=== PATIENT | male | born 1945 | race Caucasian/White ===

== ENCOUNTER 2017-04-10 10:51 | Day surgery (SDC) | payer OTHER, MEDICARE ==
[~2017-04-10] VITALS: Ht 177.8 cm; Wt 98.5 kg
[~2017-04-10 10:51] MED LIST: AMLO10 PO; ASPI81CH PO; ATOR40TA PO; CVS GLUCOSAMIN1 EAC5 PO; FURO40 PO; GLIP5 PO; Isosorbide Mono60 MG PO; METO50 PO; Omeprazole20 M1 PO; POTA10T PO; PRAM.5 PO; SPIR25 PO
[2017-08-29] MEDS ORDERED: FURO20 (09:40)
== END 2017-04-10 14:35 | disposition home or self-care (01) ==
LOC: ORSCSDS 10:51
PROVIDERS: Internal Medicine Gastroenterology
PROC: 0D758ZZ Dilation of Esophagus, Via Natural or Artificial Opening Endoscopic (ICD-10-PCS; principal; 2017-04-10 12:15)
PROC: 0DB68ZX Excision of Stomach, Via Natural or Artificial Opening Endoscopic, Diagnostic (ICD-10-PCS; principal; 2017-04-10 12:15)
PROC: 0DB58ZX Excision of Esophagus, Via Natural or Artificial Opening Endoscopic, Diagnostic (ICD-10-PCS; principal; 2017-04-10 12:15)
DX: R13.10 Dysphagia, unspecified (principal); B37.81 Candidal esophagitis; K29.50 Unspecified chronic gastritis without bleeding; B96.81 Helicobacter pylori [H. pylori] as the cause of diseases classified elsewhere; I25.10 Atherosclerotic heart disease of native coronary artery without angina pectoris; I25.2 Old myocardial infarction; I50.9 Heart failure, unspecified; I10 Essential (primary) hypertension; G25.81 Restless legs syndrome; E11.9 Type 2 diabetes mellitus without complications; E78.5 Hyperlipidemia, unspecified; Z87.891 Personal history of nicotine dependence; Z79.82 Long term (current) use of aspirin; Z79.84 Long term (current) use of oral hypoglycemic drugs; Z79.899 Other long term (current) drug therapy
CPT/HCPCS: 82947; 88305; 88312; 88342; J2250; J7120

== ENCOUNTER 2017-07-08 05:46 | Observation (INO) | payer OTHER, MEDICARE ==
[~2017-07-08] VITALS: Ht 175.3 cm; Wt 99.3 kg
[~2017-07-08 05:46] MED LIST changes: +ISOMON20 PO; -Isosorbide Mono60 MG PO
[2017-07-08 09:48] LABS: Percent Saturation 15.7 % (20.0-50.0)
[2017-07-08 10:01] LABS: Thyroxine (T4) 10.3 ug/dL (4.5-12.1); Troponin I 0.126 ng/mL (0.000-0.040)
[2017-07-08 10:03] LABS: Thyroid Stimulating Hormone 3.11 uIU/mL (0.360-4.800); Triiodothyronine, Free 2.1 pg/mL (2.18-3.98)
[2017-07-08] MEDS ORDERED: TORSE20 PO (10:46)
[2017-07-09 05:39] LABS: BASOPHILS ABSOLUTE AUTO 0.03 K/mm3 (0.00-0.23); BASOPHILS PERCENT AUTO 0 % (0-2); EOSINOPHILS ABSOLUTE AUTO 0.24 K/mm3 (0.00-0.68); EOSINOPHILS PERCENT AUTO 3 % (0-6); Hematocrit 38.2 % (37.0-53.0); Hemoglobin 12.6 g/dL (13.5-17.5); IMMATURE GRAN ABSOLUTE AUTO 0.02 K/mm3 (0.00-0.10); IMMATURE GRAN PERCENT AUTO 0 % (0-1); LYMPHOCYTES ABSOLUTE AUTO 2.15 K/mm3 (0.84-5.20); LYMPHOCYTES PERCENT AUTO 25 % (21-46); MONOCYTES ABSOLUTE AUTO 0.81 K/mm3 (0.16-1.47); MONOCYTES PERCENT AUTO 9 % (4-13); Mean Corpuscular HGB 27.1 pg (26.0-34.0); Mean Corpuscular Volume 82 fL (80-100); NEUTROPHILS ABSOLUTE AUTO 5.41 K/mm3 (1.96-9.15); NEUTROPHILS PERCENT AUTO 63 % (41-73); Platelet Count 191 K/mm3 (150-400); RDW Coefficient Variation 13.3 % (11.7-14.2); RDW Standard Deviation 39.3 fL (35.1-46.3); Red Blood Cell Count 4.65 M/mm3 (4.30-5.90); White Blood Cell Count 8.66 K/mm3 (4.00-11.30)
[2017-07-09 06:04] LABS: Calcium, Blood 8.1 mg/dL (8.5-10.1); Creatinine, Blood 1.4 mg/dL (0.60-1.20); Potassium, Blood 3.3 mmol/L (3.5-5.5)
[2017-07-10] MEDS ORDERED: SPIR50 PO (09:43)
[2017-07-10] MEDS ORDERED: LOSA50 PO (09:43)
== END 2017-07-10 10:23 | disposition home or self-care (01) ==
LOC: ER 05:46 → MEDS 05:47 → ICUW 05:47 → ICUE 09:47 → MEDS 15:36 → ENPENDDIS 07-10 09:00 → MEDS 07-10 10:23
PROVIDERS: Internal Medicine
DX: I21.A1 Myocardial infarction type 2 (principal); I20.8 Other forms of angina pectoris; I13.0 Hypertensive heart and chronic kidney disease with heart failure and stage 1 through stage 4 chronic kidney disease, or unspecified chronic kidney disease; I50.22 Chronic systolic (congestive) heart failure; E11.22 Type 2 diabetes mellitus with diabetic chronic kidney disease; N18.3 Chronic kidney disease, stage 3 (moderate); I25.2 Old myocardial infarction; D50.9 Iron deficiency anemia, unspecified; G25.81 Restless legs syndrome; K21.9 Gastro-esophageal reflux disease without esophagitis; E11.649 Type 2 diabetes mellitus with hypoglycemia without coma; Z88.8 Allergy status to other drugs, medicaments and biological substances; Z95.5 Presence of coronary angioplasty implant and graft; Z95.1 Presence of aortocoronary bypass graft; Z87.891 Personal history of nicotine dependence; Z82.49 Family history of ischemic heart disease and other diseases of the circulatory system; Z79.899 Other long term (current) drug therapy
CPT/HCPCS: 36415; 78452; 80048; 82728; 82947; 83540; 83550; 84436; 84443; 84481; 84484; 85025; 93005; 93010; 93017; 93306; 96360; 96361; 99285; A9500; G0378; J0280; J2785; J7030

== ENCOUNTER 2017-11-30 08:03 | Inpatient (IN) | payer OTHER, MEDICARE ==
[~2017-11-30] VITALS: Ht 177.8 cm; Wt 98.4 kg
[~2017-11-30 08:03] MED LIST changes: +FURO20; -ISOMON20 PO; +Isosorbide Mono60 MG PO; +LOSA50 PO; +SPIR50 PO; +TORSE20 PO
[2017-11-30] MEDS ORDERED: Prilosec Otc20 MG (08:11)
[2017-11-30] MEDS ORDERED: POTCHL20ER PO (08:11)
[2017-11-30] MEDS ORDERED: ALBU2.5V5 INH (08:11)
[2017-11-30] MEDS ORDERED: FERSU90EL (08:11)
[2017-11-30 08:50] LABS: BASOPHILS ABSOLUTE AUTO 0.01 K/mm3 (0.00-0.23); BASOPHILS PERCENT AUTO 0 % (0-2); EOSINOPHILS ABSOLUTE AUTO 0.07 K/mm3 (0.00-0.68); EOSINOPHILS PERCENT AUTO 1 % (0-6); Hematocrit 31.3 % (37.0-53.0); Hemoglobin 9.4 g/dL (13.5-17.5); IMMATURE GRAN ABSOLUTE AUTO 0.04 K/mm3 (0.00-0.10); IMMATURE GRAN PERCENT AUTO 0 % (0-1); LYMPHOCYTES ABSOLUTE AUTO 1.24 K/mm3 (0.84-5.20); LYMPHOCYTES PERCENT AUTO 12 % (21-46); MONOCYTES ABSOLUTE AUTO 0.94 K/mm3 (0.16-1.47); MONOCYTES PERCENT AUTO 9 % (4-13); Mean Corpuscular Volume 77 fL (80-100); Mean Platelet Volume 9.6 fL (9.1-12.4); NEUTROPHILS ABSOLUTE AUTO 8.13 K/mm3 (1.96-9.15); NEUTROPHILS PERCENT AUTO 78 % (41-73); Platelet Count 203 K/mm3 (150-400); RDW Coefficient Variation 15.3 % (11.7-14.2); RDW Standard Deviation 42.4 fL (35.1-46.3); Red Blood Cell Count 4.08 M/mm3 (4.30-5.90); White Blood Cell Count 10.43 K/mm3 (4.00-11.30)
[2017-11-30 09:03] LABS: International Normalized Ratio 1.09; Prothrombin Time Results 11.2 Sec (9.7-11.5)
[2017-11-30 09:12] LABS: Albumin, Blood 2.7 g/dL (3.4-5.0); Albumin/Globulin Ratio 0.9 (0.8-1.8); Bilirubin, Total 0.6 mg/dL (0.1-1.0); Bun/Creatinine Ratio 10.5 (12.0-20.0); Calcium, Blood 7.3 mg/dL (8.5-10.1); Creatinine, Blood 1.43 mg/dL (0.60-1.20); Globulin, Blood 2.9 g/dL (2.2-4.0); Potassium, Blood 2.6 mmol/L (3.5-5.5); Total Protein, Blood 5.6 g/dL (6.4-8.2)
[2017-11-30 09:24] LABS: Troponin I 0.896 ng/mL (0.000-0.040)
[2017-12-01 04:38] LABS: Bun/Creatinine Ratio 11.3 (12.0-20.0); Calcium, Blood 7.5 mg/dL (8.5-10.1); Creatinine, Blood 1.42 mg/dL (0.60-1.20); Potassium, Blood 2.7 mmol/L (3.5-5.5)
[2017-12-02 04:21] LABS: BASOPHILS ABSOLUTE AUTO 0.02 K/mm3 (0.00-0.23); BASOPHILS PERCENT AUTO 0 % (0-2); EOSINOPHILS ABSOLUTE AUTO 0.04 K/mm3 (0.00-0.68); EOSINOPHILS PERCENT AUTO 0 % (0-6); Hematocrit 35.6 % (37.0-53.0); Hemoglobin 10.6 g/dL (13.5-17.5); IMMATURE GRAN ABSOLUTE AUTO 0.12 K/mm3 (0.00-0.10); IMMATURE GRAN PERCENT AUTO 1 % (0-1); LYMPHOCYTES ABSOLUTE AUTO 1.78 K/mm3 (0.84-5.20); LYMPHOCYTES PERCENT AUTO 10 % (21-46); MONOCYTES ABSOLUTE AUTO 1.24 K/mm3 (0.16-1.47); MONOCYTES PERCENT AUTO 7 % (4-13); Mean Corpuscular HGB 22.8 pg (26.0-34.0); Mean Corpuscular HGB Conc 29.8 g/dL (31.5-36.5); Mean Corpuscular Volume 77 fL (80-100); Mean Platelet Volume 10.2 fL (9.1-12.4); NEUTROPHILS ABSOLUTE AUTO 13.91 K/mm3 (1.96-9.15); NEUTROPHILS PERCENT AUTO 81 % (41-73); Platelet Count 249 K/mm3 (150-400); RDW Coefficient Variation 15.6 % (11.7-14.2); RDW Standard Deviation 42.7 fL (35.1-46.3); Red Blood Cell Count 4.64 M/mm3 (4.30-5.90); White Blood Cell Count 17.11 K/mm3 (4.00-11.30)
[2017-12-02 04:44] LABS: Albumin, Blood 2.9 g/dL (3.4-5.0); Albumin/Globulin Ratio 0.9 (0.8-1.8); Bilirubin, Total 0.7 mg/dL (0.1-1.0); Calcium, Blood 8.3 mg/dL (8.5-10.1); Creatinine, Blood 1.62 mg/dL (0.60-1.20); Globulin, Blood 3.4 g/dL (2.2-4.0); Magnesium, Blood 1.9 mg/dL (1.6-2.4); Potassium, Blood 3.3 mmol/L (3.5-5.5); Total Protein, Blood 6.3 g/dL (6.4-8.2)
[2017-12-02 04:45] LABS: Troponin I 0.266 ng/mL (0.000-0.040)
[2017-12-03 05:08] LABS: BASOPHILS ABSOLUTE AUTO 0.02 K/mm3 (0.00-0.23); BASOPHILS PERCENT AUTO 0 % (0-2); EOSINOPHILS ABSOLUTE AUTO 0.09 K/mm3 (0.00-0.68); EOSINOPHILS PERCENT AUTO 1 % (0-6); Hematocrit 31.9 % (37.0-53.0); Hemoglobin 9.6 g/dL (13.5-17.5); IMMATURE GRAN ABSOLUTE AUTO 0.06 K/mm3 (0.00-0.10); IMMATURE GRAN PERCENT AUTO 1 % (0-1); LYMPHOCYTES ABSOLUTE AUTO 1.72 K/mm3 (0.84-5.20); LYMPHOCYTES PERCENT AUTO 13 % (21-46); MONOCYTES ABSOLUTE AUTO 1.24 K/mm3 (0.16-1.47); MONOCYTES PERCENT AUTO 9 % (4-13); Mean Corpuscular HGB 22.5 pg (26.0-34.0); Mean Corpuscular HGB Conc 30.1 g/dL (31.5-36.5); Mean Corpuscular Volume 75 fL (80-100); NEUTROPHILS ABSOLUTE AUTO 10.09 K/mm3 (1.96-9.15); NEUTROPHILS PERCENT AUTO 76 % (41-73); Platelet Count 235 K/mm3 (150-400); RDW Coefficient Variation 15.7 % (11.7-14.2); RDW Standard Deviation 42.2 fL (35.1-46.3); Red Blood Cell Count 4.27 M/mm3 (4.30-5.90); White Blood Cell Count 13.22 K/mm3 (4.00-11.30)
[2017-12-03 05:34] LABS: Albumin, Blood 2.7 g/dL (3.4-5.0); Albumin/Globulin Ratio 0.8 (0.8-1.8); Bilirubin, Total 0.9 mg/dL (0.1-1.0); Bun/Creatinine Ratio 12.1 (12.0-20.0); Creatinine, Blood 1.57 mg/dL (0.60-1.20); Globulin, Blood 3.2 g/dL (2.2-4.0); Potassium, Blood 3.5 mmol/L (3.5-5.5); Total Protein, Blood 5.9 g/dL (6.4-8.2)
[2017-12-03] MEDS ORDERED: DILT120 PO (16:04)
[2017-12-03] MEDS ORDERED: FER-IN-SOL15 MG/1 ML PO (16:23)
== END 2017-12-03 16:51 | DRG 309 ==
LOC: ER 08:03 → PCU 08:04
PROVIDERS: Internal Medicine; Nurse Practitioner Acute Care; Physician Assistant
DX: I48.92 Unspecified atrial flutter (principal); I25.110 Atherosclerotic heart disease of native coronary artery with unstable angina pectoris; I13.0 Hypertensive heart and chronic kidney disease with heart failure and stage 1 through stage 4 chronic kidney disease, or unspecified chronic kidney disease; I50.42 Chronic combined systolic (congestive) and diastolic (congestive) heart failure; N18.3 Chronic kidney disease, stage 3 (moderate); E11.22 Type 2 diabetes mellitus with diabetic chronic kidney disease; J44.9 Chronic obstructive pulmonary disease, unspecified; E87.6 Hypokalemia; K21.9 Gastro-esophageal reflux disease without esophagitis; E78.5 Hyperlipidemia, unspecified; G47.33 Obstructive sleep apnea (adult) (pediatric); Z88.8 Allergy status to other drugs, medicaments and biological substances; Z95.1 Presence of aortocoronary bypass graft; Z95.5 Presence of coronary angioplasty implant and graft; Z87.891 Personal history of nicotine dependence; Z79.84 Long term (current) use of oral hypoglycemic drugs; Z79.899 Other long term (current) drug therapy; I25.2 Old myocardial infarction
CPT/HCPCS: 36415; 36416; 71046; 80048; 80053; 83735; 83880; 84484; 85025; 85610; 85730; 93005; 93010; 94640; 94760; 96374; 96375; 99285-25; J1644; J1650; J1940; J3475; J3480; J7030

== ENCOUNTER 2018-12-08 23:09 | Emergency (ER) | payer OTHER, MEDICARE ==
[~2018-12-08] VITALS: Ht 175.3 cm; Wt 90.7 kg
[~2018-12-08 23:09] MED LIST changes: +ALBU2.5V5 INH; +DILT120 PO; +FER-IN-SOL15 MG/1 ML PO; +FERSU90EL; +POTCHL20ER PO; +Prilosec Otc20 MG
[2018-12-08 23:43] LABS: BASOPHILS ABSOLUTE AUTO 0.05 K/mm3 (0.00-0.23); BASOPHILS PERCENT AUTO 0 % (0-2); EOSINOPHILS ABSOLUTE AUTO 0.69 K/mm3 (0.00-0.68); EOSINOPHILS PERCENT AUTO 6 % (0-6); Hematocrit 41.6 % (37.0-53.0); Hemoglobin 13.6 g/dL (13.5-17.5); IMMATURE GRAN ABSOLUTE AUTO 0.04 K/mm3 (0.00-0.10); IMMATURE GRAN PERCENT AUTO 0 % (0-1); LYMPHOCYTES ABSOLUTE AUTO 1.55 K/mm3 (0.84-5.20); LYMPHOCYTES PERCENT AUTO 13 % (21-46); MONOCYTES PERCENT AUTO 10 % (4-13); Mean Corpuscular HGB 28.2 pg (26.0-34.0); Mean Corpuscular HGB Conc 32.7 g/dL (31.5-36.5); Mean Corpuscular Volume 86 fL (80-100); Mean Platelet Volume 9.2 fL (9.1-12.4); NEUTROPHILS ABSOLUTE AUTO 8.63 K/mm3 (1.96-9.15); NEUTROPHILS PERCENT AUTO 71 % (41-73); Platelet Count 221 K/mm3 (150-400); RDW Coefficient Variation 14.7 % (11.7-14.2); RDW Standard Deviation 46.7 fL (35.1-46.3); Red Blood Cell Count 4.82 M/mm3 (4.30-5.90); White Blood Cell Count 12.16 K/mm3 (4.00-11.30)
[2018-12-09 00:03] LABS: Alanine Aminotransfer (ALT/SGP 15 U/L (12-78); Albumin, Blood 3.4 g/dL (3.4-5.0); Alk Phos 132 U/L (50-136); Anion Gap 7 mmol/L (6-16); Aspartate Aminotrans (AST/SGOT 14 U/L (12-37); Bilirubin, Total 0.6 mg/dL (0.1-1.0); Blood Urea Nitrogen 19 mg/dL (8-24); Bun/Creatinine Ratio 12.7 (12.0-20.0); CO2, Blood 27 mmol/L (21-32); Calcium, Blood 8.4 mg/dL (8.5-10.1); Chloride, Blood 110 mmol/L (98-108); Globulin, Blood 3.4 g/dL (2.2-4.0); Glomerular Filtration Rate 49 (60-); Glucose, Blood 106 mg/dL (70-99); Potassium, Blood 4.2 mmol/L (3.5-5.5); Sodium, Blood 144 mmol/L (136-145); Total Protein, Blood 6.8 g/dL (6.4-8.2); Troponin I <0.015 ng/mL (0.000-0.040)
[2018-12-09] MEDS ORDERED: Prednisone20 MG PO (00:57)
[2018-12-09] MEDS ORDERED: Zithromax250 MG PO (00:57)
== END 2018-12-09 01:34 | disposition home or self-care (01) ==
LOC: ER 23:09
PROVIDERS: Physician Assistant
DX: J44.1 Chronic obstructive pulmonary disease with (acute) exacerbation (principal); J96.01 Acute respiratory failure with hypoxia; I50.9 Heart failure, unspecified; F17.200 Nicotine dependence, unspecified, uncomplicated; Z88.8 Allergy status to other drugs, medicaments and biological substances; Z79.899 Other long term (current) drug therapy; Z79.84 Long term (current) use of oral hypoglycemic drugs; Z79.51 Long term (current) use of inhaled steroids
CPT/HCPCS: 36415; 71046; 80053; 83880; 84484; 85025; 93005; 93010; 94640; 96374; 99284-25; J2930

== ENCOUNTER 2019-06-09 23:12 | Emergency (ER) | payer OTHER, MEDICARE ==
[~2019-06-09] VITALS: Ht 177.8 cm; Wt 95.2 kg
[~2019-06-09 23:12] MED LIST changes: +Prednisone20 MG PO; +Zithromax250 MG PO
[2019-06-09 23:55] LABS: BASOPHILS ABSOLUTE AUTO 0.06 K/mm3 (0.00-0.23); BASOPHILS PERCENT AUTO 1 % (0-2); EOSINOPHILS ABSOLUTE AUTO 0.51 K/mm3 (0.00-0.68); EOSINOPHILS PERCENT AUTO 6 % (0-6); Hematocrit 41.4 % (37.0-53.0); Hemoglobin 13.4 g/dL (13.5-17.5); IMMATURE GRAN ABSOLUTE AUTO 0.03 K/mm3 (0.00-0.10); IMMATURE GRAN PERCENT AUTO 0 % (0-1); LYMPHOCYTES ABSOLUTE AUTO 1.91 K/mm3 (0.84-5.20); LYMPHOCYTES PERCENT AUTO 21 % (21-46); MONOCYTES ABSOLUTE AUTO 0.75 K/mm3 (0.16-1.47); MONOCYTES PERCENT AUTO 8 % (4-13); Mean Corpuscular HGB 27.5 pg (26.0-34.0); Mean Corpuscular HGB Conc 32.4 g/dL (31.5-36.5); Mean Corpuscular Volume 85 fL (80-100); Mean Platelet Volume 9.2 fL (9.1-12.4); NEUTROPHILS ABSOLUTE AUTO 5.78 K/mm3 (1.96-9.15); NEUTROPHILS PERCENT AUTO 64 % (41-73); Platelet Count 199 K/mm3 (150-400); RDW Coefficient Variation 14.6 % (11.7-14.2); RDW Standard Deviation 44.9 fL (35.1-46.3); Red Blood Cell Count 4.88 M/mm3 (4.30-5.90); White Blood Cell Count 9.04 K/mm3 (4.00-11.30)
[2019-06-10] MEDS ORDERED: AMLO5 PO (00:13)
[2019-06-10] MEDS ORDERED: ASPI81CH PO (00:14)
[2019-06-10 00:20] LABS: Alanine Aminotransfer (ALT/SGP 16 U/L (12-78); Albumin, Blood 3.4 g/dL (3.4-5.0); Alk Phos 131 U/L (50-136); Anion Gap 6 mmol/L (6-16); Aspartate Aminotrans (AST/SGOT 12 U/L (12-37); Bilirubin, Total 0.4 mg/dL (0.1-1.0); Blood Urea Nitrogen 21 mg/dL (8-24); Bun/Creatinine Ratio 15.1 (12.0-20.0); CO2, Blood 29 mmol/L (21-32); Calcium, Blood 8.5 mg/dL (8.5-10.1); Chloride, Blood 110 mmol/L (98-108); Creatinine, Blood 1.39 mg/dL (0.60-1.20); Globulin, Blood 3.5 g/dL (2.2-4.0); Glomerular Filtration Rate 53 (60-); Glucose, Blood 111 mg/dL (70-99); Potassium, Blood 3.9 mmol/L (3.5-5.5); Sodium, Blood 145 mmol/L (136-145); Total Protein, Blood 6.9 g/dL (6.4-8.2); Troponin I <0.015 ng/mL (0.000-0.040)
== END 2019-06-10 02:00 | disposition home or self-care (01) ==
LOC: ER 23:12
PROVIDERS: Physician Assistant
DX: E87.70 Fluid overload, unspecified (principal); I11.0 Hypertensive heart disease with heart failure; I50.9 Heart failure, unspecified; E11.9 Type 2 diabetes mellitus without complications; I25.2 Old myocardial infarction; F17.200 Nicotine dependence, unspecified, uncomplicated
CPT/HCPCS: 36415; 71046; 80053; 83880; 84484; 85025; 93005; 93010; 96374; 99285-25

== ENCOUNTER 2019-06-15 21:18 | Emergency (ER) | payer OTHER, MEDICARE ==
[~2019-06-15] VITALS: Ht 175.3 cm; Wt 95.2 kg
[~2019-06-15 21:18] MED LIST changes: +AMLO5 PO
[2019-06-15 22:15] LABS: BASOPHILS ABSOLUTE AUTO 0.03 K/mm3 (0.00-0.23); BASOPHILS PERCENT AUTO 0 % (0-2); EOSINOPHILS ABSOLUTE AUTO 0.61 K/mm3 (0.00-0.68); EOSINOPHILS PERCENT AUTO 7 % (0-6); Hematocrit 42.6 % (37.0-53.0); Hemoglobin 13.6 g/dL (13.5-17.5); IMMATURE GRAN ABSOLUTE AUTO 0.03 K/mm3 (0.00-0.10); IMMATURE GRAN PERCENT AUTO 0 % (0-1); LYMPHOCYTES ABSOLUTE AUTO 1.38 K/mm3 (0.84-5.20); LYMPHOCYTES PERCENT AUTO 16 % (21-46); MONOCYTES ABSOLUTE AUTO 1.02 K/mm3 (0.16-1.47); MONOCYTES PERCENT AUTO 12 % (4-13); Mean Corpuscular HGB Conc 31.9 g/dL (31.5-36.5); Mean Corpuscular Volume 85 fL (80-100); Mean Platelet Volume 9.5 fL (9.1-12.4); NEUTROPHILS ABSOLUTE AUTO 5.79 K/mm3 (1.96-9.15); NEUTROPHILS PERCENT AUTO 65 % (41-73); Platelet Count 178 K/mm3 (150-400); RDW Coefficient Variation 14.7 % (11.7-14.2); RDW Standard Deviation 45.4 fL (35.1-46.3); Red Blood Cell Count 5.04 M/mm3 (4.30-5.90); White Blood Cell Count 8.86 K/mm3 (4.00-11.30)
[2019-06-15 22:36] LABS: Alanine Aminotransfer (ALT/SGP 20 U/L (12-78); Albumin, Blood 3.4 g/dL (3.4-5.0); Alk Phos 136 U/L (50-136); Anion Gap 7 mmol/L (6-16); Aspartate Aminotrans (AST/SGOT 16 U/L (12-37); Bilirubin, Total 0.4 mg/dL (0.1-1.0); Blood Urea Nitrogen 23 mg/dL (8-24); Bun/Creatinine Ratio 14.6 (12.0-20.0); CO2, Blood 30 mmol/L (21-32); Calcium, Blood 8.7 mg/dL (8.5-10.1); Chloride, Blood 107 mmol/L (98-108); Creatinine, Blood 1.57 mg/dL (0.60-1.20); Globulin, Blood 3.4 g/dL (2.2-4.0); Glomerular Filtration Rate 46 (60-); Glucose, Blood 128 mg/dL (70-99); Potassium, Blood 3.6 mmol/L (3.5-5.5); Sodium, Blood 144 mmol/L (136-145); Total Protein, Blood 6.8 g/dL (6.4-8.2); Troponin I <0.015 ng/mL (0.000-0.040)
[2019-06-15] MEDS ORDERED: Prednisone20 MG PO (23:50)
[2019-06-15] MEDS ORDERED: Zithromax250 MG PO (23:50)
== END 2019-06-16 00:10 | disposition home or self-care (01) ==
LOC: ER 21:18
PROVIDERS: Emergency Medicine
DX: J44.1 Chronic obstructive pulmonary disease with (acute) exacerbation (principal); I11.0 Hypertensive heart disease with heart failure; E11.9 Type 2 diabetes mellitus without complications; I50.9 Heart failure, unspecified; I25.2 Old myocardial infarction; E78.5 Hyperlipidemia, unspecified; F17.200 Nicotine dependence, unspecified, uncomplicated; Z79.899 Other long term (current) drug therapy
CPT/HCPCS: 36415; 71046; 80053; 84484; 85025; 93005; 93010; 94640; 99284-25; J7512

== ENCOUNTER 2021-01-14 21:55 | Observation (INO) | payer OTHER ==
[~2021-01-14] VITALS: Ht 175.3 cm; Wt 107.0 kg
[2021-01-14 22:24] LABS: BASOPHILS ABSOLUTE AUTO 0.02 K/mm3 (0.00-0.23); BASOPHILS PERCENT AUTO 0 % (0-2); EOSINOPHILS ABSOLUTE AUTO 0.32 K/mm3 (0.00-0.68); EOSINOPHILS PERCENT AUTO 3 % (0-6); Hematocrit 40.2 % (37.0-53.0); Hemoglobin 13.1 g/dL (13.5-17.5); IMMATURE GRAN ABSOLUTE AUTO 0.04 K/mm3 (0.00-0.10); IMMATURE GRAN PERCENT AUTO 0 % (0-1); LYMPHOCYTES ABSOLUTE AUTO 1.46 K/mm3 (0.84-5.20); LYMPHOCYTES PERCENT AUTO 15 % (21-46); MONOCYTES ABSOLUTE AUTO 1.09 K/mm3 (0.16-1.47); MONOCYTES PERCENT AUTO 11 % (4-13); Mean Corpuscular HGB 25.8 pg (26.0-34.0); Mean Corpuscular HGB Conc 32.6 g/dL (31.5-36.5); Mean Corpuscular Volume 79 fL (80-100); Mean Platelet Volume 9.6 fL (9.1-12.4); NEUTROPHILS ABSOLUTE AUTO 7.05 K/mm3 (1.96-9.15); NEUTROPHILS PERCENT AUTO 71 % (41-73); Platelet Count 231 K/mm3 (150-400); RDW Coefficient Variation 15.9 % (11.7-14.2); RDW Standard Deviation 45.3 fL (35.1-46.3); Red Blood Cell Count 5.07 M/mm3 (4.30-5.90); White Blood Cell Count 9.98 K/mm3 (4.00-11.30)
[2021-01-14 22:43] LABS: Bun/Creatinine Ratio 12.7 (12.0-20.0); Calcium, Blood 8.6 mg/dL (8.5-10.1); Creatinine, Blood 1.26 mg/dL (0.60-1.20); Potassium, Blood 3.4 mmol/L (3.5-5.5); Troponin I 0.015 ng/mL (0.000-0.040)
[2021-01-14 22:48] LABS: International Normalized Ratio 1.05
[2021-01-15 00:38] LABS: SARS-Cov-2 (COVID-19) PCR, MMC NEGATIVE (NEGATIVE)
[2021-01-15 01:07] LABS: Cholesterol 118 mg/dL (50-200); HDL Cholesterol 40 mg/dL (>39); LDL/HDL RATIO 1.5; Low Density Lipoprotein Chol 61 mg/dL (0-110); Triglycerides 87 mg/dL (30-160); Very Low Density Lipoprot Chol 17 mg/dL (6-32)
[2021-01-15 03:51] LABS: BASOPHILS ABSOLUTE AUTO 0.03 K/mm3 (0.00-0.23); BASOPHILS PERCENT AUTO 0 % (0-2); EOSINOPHILS ABSOLUTE AUTO 0.36 K/mm3 (0.00-0.68); EOSINOPHILS PERCENT AUTO 4 % (0-6); Hematocrit 35.8 % (37.0-53.0); Hemoglobin 11.6 g/dL (13.5-17.5); IMMATURE GRAN ABSOLUTE AUTO 0.03 K/mm3 (0.00-0.10); IMMATURE GRAN PERCENT AUTO 0 % (0-1); LYMPHOCYTES ABSOLUTE AUTO 1.78 K/mm3 (0.84-5.20); LYMPHOCYTES PERCENT AUTO 17 % (21-46); MONOCYTES ABSOLUTE AUTO 1.33 K/mm3 (0.16-1.47); MONOCYTES PERCENT AUTO 13 % (4-13); Mean Corpuscular HGB 26.2 pg (26.0-34.0); Mean Corpuscular HGB Conc 32.4 g/dL (31.5-36.5); Mean Corpuscular Volume 81 fL (80-100); Mean Platelet Volume 9.6 fL (9.1-12.4); NEUTROPHILS ABSOLUTE AUTO 6.87 K/mm3 (1.96-9.15); NEUTROPHILS PERCENT AUTO 66 % (41-73); Platelet Count 201 K/mm3 (150-400); RDW Coefficient Variation 15.8 % (11.7-14.2); Red Blood Cell Count 4.42 M/mm3 (4.30-5.90)
[2021-01-15 04:06] LABS: International Normalized Ratio 1.08; Prothrombin Time Results 11.3 Sec (9.7-11.5)
[2021-01-15 04:12] LABS: Bun/Creatinine Ratio 13.1 (12.0-20.0); Calcium, Blood 8.3 mg/dL (8.5-10.1); Creatinine, Blood 1.3 mg/dL (0.60-1.20); Potassium, Blood 3.4 mmol/L (3.5-5.5)
--- NOTE | 2021-01-15 06:15 | NUR ---
SHIFT SUMMARY PT IS A+0X4, PLEASANT AND COOPERATIVE TO CARE. NO CHEST PAIN AT REST. SHARP CHEST PAIN ON RIGHT SIDE DURING DEEP INSPIRATION. HEPARIN GTT INFUSING IN RIGHT A/C. PT REMAINS NPO FOR ECHO IN AM. VSS. MAINTINING O2 SATS OVER 95% ON RA. PT IN BED RESTING WITH CALL ALARM AT SIDE. WILL CONTINUE TO MONITOR UNTIL REPORT GIVEN TO DAYSHIFT RN
--- NOTE | 2021-01-15 07:15 | NUR ---
CARE ASSUMPTION PATIENT A/OX4. VSS. TELE SR. SPO2 >90% ON RA. PATIENT REPORTS NO CHEST PAIN, EXCEPT FOR PAIN WHEN TAKING A DEEP BREATH LOCATED ON HIS RIGHT RIBS. PATIENT REPORTS NO PAIN OR SOB. PATIENT HAS +3 EDEMA BILATERALLY. PATIENT IS READY TO LEAVE, BUT THIS RN PROVIDED EDUCATION TO WHY IT IS IMPORTANT TO STAY TO DETERMINE WHAT CAUSE THE CHEST PAIN THAT BROUGHT HIM IN. PATIENT UNDERSTOOD THIS AND AGREED. A STRESS TEST IS TO BE DONE TODAY. CALL LIGHT WITHIN REACH. WILL CONTINUE TO MONITOR AND PROVIDE CARE.
--- NOTE | 2021-01-15 11:33 | NUR ---
PT LEFT AMA, PT WAS UPSET ABOUT NOT BEING ABLE TO TALK TO THE DR YET AND NOT GETTING HIS PROCEDURE/TESTS DONE YET, PT WAS EXPLAINED THAT WE ARE TRYING AND WE'VE BEEN TALKING TO THE NUCLEAR MED PERSON REGARDING HIS TEST AND THAT THEY CAN DO ONE DAY PROTOCOL, PT THEN STATED "NO.. I WANT YOU TO TAKE MY IV OUT AND I AM LEAVING! I AM DONE WITH THIS TEST AND EVERYTHING.. I AM LEAVING!" PT ASKED TO CALM DOWN AND WAS INFORMED THAT HE NEEDS TO SIGN AMA FORM PT WAS AGREEABLE. PT STATED HE WAS UPSET ABOUT NOT GETTING HELP TO USE THE BATHROOM RIGHT AWAY AND THAT THE NURSING DIRECTOR IT WAS HAVING HIM SIGN A CONSENT TO DO TESTING HIV/HEPC REGARDING A TRAVELING SECRETARY THAT HAD NEEDLE STICK INJURY WHILE DRAWING HIS LABS PT REFUSED TO SIGN. PT WAS EXPLAINED THE RISKS AND BENEFITS OF LEAVING AMA PT SIGNED THE PAPER, IV WAS REMOVED. DR CROFT WAS CALLED AND MADE AWARE. PT LEFT AT 1125A WITH ALL OF HIS BELONGINGS.
== END 2021-01-15 11:30 | disposition left against medical advice (07) ==
LOC: ER 21:55 → PCU 01-15 00:47
PROVIDERS: Student in an Organized Health Care Education/Training Program; ADMIT Family Medicine
DX: M25.512 Pain in left shoulder (principal); R94.31 Abnormal electrocardiogram [ECG] [EKG]; I25.2 Old myocardial infarction; E87.6 Hypokalemia; I13.0 Hypertensive heart and chronic kidney disease with heart failure and stage 1 through stage 4 chronic kidney disease, or unspecified chronic kidney disease; E11.22 Type 2 diabetes mellitus with diabetic chronic kidney disease; N18.30 Chronic kidney disease, stage 3 unspecified; I50.33 Acute on chronic diastolic (congestive) heart failure; I25.10 Atherosclerotic heart disease of native coronary artery without angina pectoris; J44.9 Chronic obstructive pulmonary disease, unspecified; E78.5 Hyperlipidemia, unspecified; K21.9 Gastro-esophageal reflux disease without esophagitis; D64.9 Anemia, unspecified; F17.210 Nicotine dependence, cigarettes, uncomplicated; Z79.84 Long term (current) use of oral hypoglycemic drugs; Z95.1 Presence of aortocoronary bypass graft; Z95.5 Presence of coronary angioplasty implant and graft; Z88.8 Allergy status to other drugs, medicaments and biological substances; Z88.6 Allergy status to analgesic agent; Z53.29 Procedure and treatment not carried out because of patient's decision for other reasons
CPT/HCPCS: 36415; 71045; 80048; 80061; 82947; 83880; 84484; 85025; 85379; 85610; 85730; 90686; 93005; 93010; 96365; 96366; 96375; 96376; 99285-25; A9270; G0008; G0378; J1644; J1940; J2270; U0004

== ENCOUNTER 2022-04-09 19:53 | Inpatient (IN) | payer OTHER ==
[~2022-04-09] VITALS: Ht 182.9 cm; Wt 85.7 kg
[~2022-04-09 19:53] MED LIST changes: +ISOSORBIDE MONO60 MG PO; -Isosorbide Mono60 MG PO; +LOSA25 PO; -LOSA50 PO; -METO50 PO; +OMEP20ER PO; -Prilosec Otc20 MG; +TOPROL XL25 MG PO
[2022-04-09 20:10] LABS: BASOPHILS ABSOLUTE AUTO 0.05 K/mm3 (0.00-0.23); BASOPHILS PERCENT AUTO 0 % (0-2); EOSINOPHILS ABSOLUTE AUTO 0.84 K/mm3 (0.00-0.68); EOSINOPHILS PERCENT AUTO 5 % (0-6); Hemoglobin 9.5 g/dL (13.5-17.5); IMMATURE GRAN ABSOLUTE AUTO 0.08 K/mm3 (0.00-0.10); IMMATURE GRAN PERCENT AUTO 1 % (0-1); LYMPHOCYTES ABSOLUTE AUTO 4.36 K/mm3 (0.84-5.20); LYMPHOCYTES PERCENT AUTO 26 % (21-46); MONOCYTES ABSOLUTE AUTO 1.39 K/mm3 (0.16-1.47); MONOCYTES PERCENT AUTO 8 % (4-13); Mean Corpuscular HGB 24.3 pg (26.0-34.0); Mean Corpuscular HGB Conc 31.7 g/dL (31.5-36.5); Mean Corpuscular Volume 77 fL (80-100); Mean Platelet Volume 9.4 fL (9.1-12.4); NEUTROPHILS ABSOLUTE AUTO 10.17 K/mm3 (1.96-9.15); NEUTROPHILS PERCENT AUTO 60 % (41-73); Platelet Count 309 K/mm3 (150-400); RDW Coefficient Variation 17.7 % (11.7-14.2); RDW Standard Deviation 49.4 fL (35.1-46.3); Red Blood Cell Count 3.91 M/mm3 (4.30-5.90); White Blood Cell Count 16.89 K/mm3 (4.00-11.30)
[2022-04-09 20:51] LABS: D-Dimer, Quantitative 1.12 mg/L FEU (0.00-0.52)
--- NOTE | 2022-04-09 22:05 | NUR ---
PATIENT ARRIVED FROM PRISONER CLASSIFICATION INTERVIEWER AWAKE AND C/O PAIN TO LEFT CHEST 06/16 ALSO C/O FEELING COLD. LEVOPHED 10.5 MCG INFUSING TO LEFT AC IV. TR BAND TO RIGHT WRIST WITH NO ACTIVE OOZING SEEN. RIGHT AC WITH DRIED BLOOD DUE TO OLD IV SITE. SMALL AMT OF BLOOD TO RIGHT PINKY TOE APPEARS TO BE FROM NAILBED, AREA CLEANSED AND 2X2 PLACED AROUND NAIL AND SECURED WITH COBAN. PLACED ON ICU MONITORS HAVING DIFFICULTY OBTAINING A BLOOD PRESSURE FROM LEFT WRIST. DUE TO CONTINUED CHEST PAIN AND APPEARS TO HAVE ELEVATED ST, WAS GOING TO DO EKG. DOCTOR KARLA AND DOCTOR LAURA ARRIVED TO ROOM, EKG DC'D. PLACED BP CUFF ABOVE AC AND WAS ABLE TO OBTAIN BP READING. PATIENT PREPARED FOR CENTRAL LINE PLACEMENT DUE TO NEED FOR LEVOPHED.
[2022-04-09 22:54] LABS: Bun/Creatinine Ratio 14.9 (12.0-20.0); Calcium, Blood 8.3 mg/dL (8.5-10.1); Creatinine, Blood 1.54 mg/dL (0.60-1.20); Magnesium, Blood 1.9 mg/dL (1.6-2.4); Potassium, Blood 3.5 mmol/L (3.5-5.5)
[2022-04-09 22:54] LABS: International Normalized Ratio 1.1; Prothrombin Time Results 11.5 Sec (9.7-11.5)
[2022-04-09 23:35] LABS: Influenza A, PCR NEGATIVE (NEGATIVE); Influenza B, PCR NEGATIVE (NEGATIVE); Resp Syncytial Virus, PCR NEGATIVE (NEGATIVE); SARS-Cov-2 (COVID-19) PCR, MMC NEGATIVE (NEGATIVE)
--- NOTE | 2022-04-10 | NUR ---
CENTRAL LINE TO RIGHT IJ IN PLACE. CONDOM CATH PLACED DUE TO BEDREST, DUE TO HYPOTENSION. ADMIT HX OBTAINED FROM PATIENT AND PATIENTS FAMILY. PATIENT VERBALIZED CHEST PAIN DOWN TO 04/18. NOW C/O ROBERTSON THAT COMES AND GOES AND C/O CHRONIC BACK PAIN RELIEVED WITH REPOSITIONING. PATIENT REFUSING TO LAY ON HIS SIDE, STATES HE CAN ONLY SLEEP ON HIS BACK.
[2022-04-10] MEDS ORDERED: SPIR25 PO (00:10)
[2022-04-10] MEDS ORDERED: FURO40 PO (00:10)
[2022-04-10] MEDS ORDERED: GLIP5 PO (00:41)
[2022-04-10] MEDS ORDERED: CODACE30 PO (00:45)
[2022-04-10] MEDS ORDERED: NITR.4SL SL (00:46)
[2022-04-10] MEDS ORDERED: HYDR10 PO (00:47)
[2022-04-10] MEDS ORDERED: EUTHYROX50 MCG PO (00:48)
[2022-04-10] MEDS ORDERED: PRAM.5 PO (00:49)
[2022-04-10] MEDS ORDERED: ATOR80 PO (00:50)
--- NOTE | 2022-04-10 03:14 | NUR ---
PATIENT C/O PRESSURE TYPE PAIN TO UPPER ABD "LIKE IT IS TO FULL" DENIES NAUSEA. ABD SOFT TO PALPATE. FENTANYL IV GIVEN FOR PAIN. PATIENT CONTINUES TO REFUSE TO LAY ON HIS SIDE.
[2022-04-10 05:05] LABS: BASOPHILS ABSOLUTE AUTO 0.04 K/mm3 (0.00-0.23); BASOPHILS PERCENT AUTO 0 % (0-2); EOSINOPHILS ABSOLUTE AUTO 0.06 K/mm3 (0.00-0.68); EOSINOPHILS PERCENT AUTO 0 % (0-6); Hematocrit 30.2 % (37.0-53.0); Hemoglobin 9.6 g/dL (13.5-17.5); IMMATURE GRAN PERCENT AUTO 1 % (0-1); LYMPHOCYTES ABSOLUTE AUTO 1.66 K/mm3 (0.84-5.20); LYMPHOCYTES PERCENT AUTO 11 % (21-46); MONOCYTES ABSOLUTE AUTO 1.18 K/mm3 (0.16-1.47); MONOCYTES PERCENT AUTO 8 % (4-13); Mean Corpuscular HGB 24.2 pg (26.0-34.0); Mean Corpuscular HGB Conc 31.8 g/dL (31.5-36.5); Mean Corpuscular Volume 76 fL (80-100); Mean Platelet Volume 9.5 fL (9.1-12.4); NEUTROPHILS ABSOLUTE AUTO 12.28 K/mm3 (1.96-9.15); NEUTROPHILS PERCENT AUTO 80 % (41-73); Platelet Count 291 K/mm3 (150-400); RDW Coefficient Variation 17.7 % (11.7-14.2); RDW Standard Deviation 48.5 fL (35.1-46.3); Red Blood Cell Count 3.97 M/mm3 (4.30-5.90); White Blood Cell Count 15.32 K/mm3 (4.00-11.30)
[2022-04-10 05:31] LABS: Alanine Aminotransfer (ALT/SGP 111 U/L (12-78); Albumin, Blood 2.5 g/dL (3.4-5.0); Albumin/Globulin Ratio 0.8 (0.8-1.8); Alk Phos 104 U/L (50-136); Anion Gap 6 mmol/L (6-16); Aspartate Aminotrans (AST/SGOT 909 U/L (12-37); Bilirubin, Total 0.4 mg/dL (0.1-1.0); Blood Urea Nitrogen 26 mg/dL (8-24); Bun/Creatinine Ratio 17.1 (12.0-20.0); CHOL/HDL RATIO 2.8; CO2, Blood 24 mmol/L (21-32); Chloride, Blood 111 mmol/L (98-108); Cholesterol 97 mg/dL (50-200); Creatinine, Blood 1.52 mg/dL (0.60-1.20); Globulin, Blood 3.3 g/dL (2.2-4.0); Glomerular Filtration Rate 47 (60-); Glucose, Blood 282 mg/dL (70-99); HDL Cholesterol 35 mg/dL (>39); LDL/HDL RATIO 1.3; Low Density Lipoprotein Chol 47 mg/dL (0-110); Potassium, Blood 3.5 mmol/L (3.5-5.5); Sodium, Blood 141 mmol/L (136-145); Total Protein, Blood 5.8 g/dL (6.4-8.2); Triglycerides 74 mg/dL (30-160); Very Low Density Lipoprot Chol 14 mg/dL (6-32)
--- NOTE | 2022-04-10 06:48 | NUR ---
DOCTOR LAURA NOTIFIED OF CONTINUED COMPLAINT OF HIGH ABD PRESSURE, JUSTIN LIKE PAIN. ORDER OBTAINED FOR GI COCKTAIL
--- NOTE | 2022-04-10 08:23 | NUR ---
ASSUMED CARE OF PATIENT AT 0700, HE WAS MOANING IN PAIN DESCRIBING A "FULLNESS IN HIS STOMACH". MEDICATED WITH GI COCKTAIL BY NOC RN AND PT C/O INABILITY TO SWALLOW. PT THEN C/O DIFFICULTY BREATHING, RESPS EVEN, NON LABORED, BIOX 100% AND PT ENCOURAGED TO SLOW HIS BREATHING AND TO TRY TO RELAX. ALL GI MEDS HAVE BEEN GIVEN, PT GIVEN FENTANYL 50MCG WITH GOOD RELIEF. DAUGHTER, KIANA CALLED FROM [place] AND SPOKE WITH PATIENT. PLATER SUPERVISOR HERE FOR EXAM. SEE ASSESSMENT FOR DETAILS.
--- NOTE | 2022-04-10 10:42 | NUR ---
KIERSTEN HAS REPORTED THAT HIS "FULLNESS" IS IMPROVING BUT HE CONTINUES TO BE NAUSEATED, CALL TO . SHE WILL BE PUTTING ORDERS IN. PT HAS A CONDOM CATHETER AND WAS GIVEN LASIX THIS AM. HE WAS UNABLE TO KEEP THE CATHETER ON AND WAS INCONTINENT OF BOTH STOOL AND URINE. PT CLEANED AND REPOSITIONED, HE BEGINS SAYING HE "CAN'T BREATHE" AND IS GOING TO THROW UP. VITALS STABLE AND PT ENCOURAGED TO TRY TO TAKE DEEP BREATHS AND RELAX HE IS "WORKING HIMSELF" UP. HE ADMITS THAT HE IS GETTING ANXIOUS AND IT IS NOT HELPING. HE DOES ASK IF HIS LEGS ARE IMPROVING SINCE ADMISSION. ADVISED THAT IT WOULD NOT BE HAPPENING THAT QUICKLY.
--- NOTE | 2022-04-10 13:46 | NUR ---
PT'S YOUNGEST DAUGHTER HERE TO VISIT, STATES PATIENT HAS GONE BACK TO SMOKING AND DRINKING SINCE HIS PREVIOUS NM. STATES THAT THE FAMILY SITUATION IS [facility]- OUS AT BEST. PT IS REPEATEDLY SAYING THAT HE "DOESN'T WANT TO HERE, I WANT TO AT HOME". HE ADMITTEDLY STATES THAT HE IS LIVING BETWEEN HIS SISTER'S HOME AND HIS GIRLFRIEND'S HOME. PT HAS DONE WELL SINCE GIVEN THE ATIVAN, IS LESS NAUSEOUS, NO LONGER MOANING OR CRYING OUT.
--- NOTE | 2022-04-10 15:40 | NUR ---
1430 PT UP TO CHAIR, PER REQUEST OF PATIENT AND HIS SISTER AND GIRLFRIEND. PT DID WELL ON HIS TRANSFER. HE WAS ABLE TO STAND, WALK AND MOVE TO THE CHAIR WITHOUT INCIDENT. HE WAS GIVEN ANOTHER DOSE OF ATIVAN PER HIS REQUEST PRIOR TO MOVE. LADIES CAUTIONED TO NOT CREATE MORE ANXIETY FOR HIM. RECEPTIVE. PT IS NAPPING INTERMITTENTLY IN THE CHAIR.
--- NOTE | 2022-04-10 19:00 | NUR ---
KIERSTEN HAS BEEN ANXIOUS T/O THE DAY. HE HAS BEEN TACHYPNEIC AT VARYING TIMES AND C/O "NOT BEING ABLE TO BREATHE". HIS VITALS SIGNS HAVE BEEN STABLE, WITH SOME POST INTERVENTION ARRHYTHMIA'S. PT CONTINUES TO SAY HE FEELS <IDEAL. HE HAS DENIED ANY FURTHER CHEST PAIN AND ONLY COMPLAINS OF NAUSEA, WITH NO EMESIS TODAY. HE IS USING THE URINAL AND IS IN THE RECLINER WITH GOOD TRANSITIONS W/O MUCH ASSISTANCE. FAMILY HAS LEFT FOR THE DAY. NO LOW PRESSURE KETTLE OPERATOR HAS BEEN BY TO SEE HIM TODAY. WILL REPORT OFF TO NEXT SHIFT WHEN ABLE.
--- NOTE | 2022-04-11 01:16 | NUR ---
PATIENT AWAKE AND REQUESTING TO GO TO THE BED, PATIENT ABLE TO STAND AND WALK APROX 5 FEET TO THE BED WITH SLIGHT SOB AND HEART RATE UP TO 120'S. PATIENT C/O NAUSEA BEFORE GETTING UP AND AMBULATING. ATIVAN 0.5 MG IV GIVEN AND HEART RATE NOW DOWN TO 108 AND PATIENT APPEARS TO BE SLEEPING.
[2022-04-11 04:13] LABS: Hematocrit 30.9 % (37.0-53.0); Hemoglobin 9.9 g/dL (13.5-17.5); Mean Corpuscular HGB 24.3 pg (26.0-34.0); Mean Corpuscular Volume 76 fL (80-100); Mean Platelet Volume 10.1 fL (9.1-12.4); Platelet Count 287 K/mm3 (150-400); RDW Standard Deviation 48.7 fL (35.1-46.3); Red Blood Cell Count 4.08 M/mm3 (4.30-5.90); White Blood Cell Count 14.65 K/mm3 (4.00-11.30)
[2022-04-11 04:42] LABS: Albumin, Blood 2.6 g/dL (3.4-5.0); Albumin/Globulin Ratio 0.8 (0.8-1.8); Bilirubin, Total 0.6 mg/dL (0.1-1.0); Bun/Creatinine Ratio 15.7 (12.0-20.0); Calcium, Blood 8.4 mg/dL (8.5-10.1); Creatinine, Blood 1.72 mg/dL (0.60-1.20); Globulin, Blood 3.4 g/dL (2.2-4.0); Percent Saturation 10.1 % (20.0-50.0); Potassium, Blood 3.9 mmol/L (3.5-5.5)
--- NOTE | 2022-04-11 06:36 | NUR ---
SUMMARY PATIENT AWAKENS THIS MORNING AND VERBALIZED THAT HE FEELS LIKE HE SLEEPING WELL. NO C/O NAUSEA OR CHEST PAIN THIS MORNING. VERBALIZED THAT HE IS EAGER TO GO HOME. HEART RATE UP 120'S THIS MORNING. WHILE SLEEPING PATIENT HAVING SOME SLEEP APNEA MAINTAINING BIOX >90% ON RA. RIGHT WRIST WITH ARM BOARD IN PLACE INSERTION SITE WITH CLEAR DRESSING IN PLACE NO SWELLING OR BLEEDING SEEN. PATIENT REPOSITIONING SELF IN BED FOR COMFORT. ABLE TO WALK FROM CHAIR TO BED WITH MIN ASSISTANCE TO MIND THE LINES AND CORDS.
--- NOTE | 2022-04-11 07:45 | NUR ---
AM ASSESSMENT: Pt resting in bed but is anxious. Requesting to get up to chair. One person assist up. LS with fine crackles in bases, exp wheezing when up to chair and dyspnia with exertion. HR shows sinus Tach with inverted T wave on monitors. Pt denies chest pain. BT positive. Pt states that he is slightly nauseous, medicated with zofran. BT positive, abd non-tender, passing flatus. +4 edema to BLE, states this is chronic. Call light in reach. Will continue to monitor and treat per orders.
--- NOTE | 2022-04-11 10:23 | NUR ---
Pt. is awake in a recliner and welcomes my visit. Pts. daughter is present. Pt. is pleasant but is unsettled about his ability to care for himself if/when he is discharged. Listen empathetically with a calming presence. Pt. displays evidence of somnolence during the visit. Facilitate a short life review. Prayed with Pt. Both Pt. and pts. daughter verbalize graitutde for the spiritual care visit.
--- NOTE | 2022-04-11 18:47 | NUR ---
SHIFT SUMMARY: Pt sitting up in bed eating dinner with family at bedside at this time. States that he is feeling a little better. Pt was anxious this morning and c/o "fast breathing". Pt noted to have chyne-riley breathing with apnic periods when sleeping. Denied SOB or chest pain, just anxiety. Pt was given medications per orders and anxiety subsided this afternoon. HR has remained ST throughout shift. Pt did have one episode of what appeared to be V-Tach, then SVT. Automotive Airconditioning Mechanic aware. Pt asymptomatic during that time. other VS remained stable throughout shift. LS have remained with fine crackles in bases. Edema in BLE appears unchanged. No other changes at this time. Will report to night RN.
[2022-04-12 03:48] LABS: Hemoglobin 9.7 g/dL (13.5-17.5); Mean Corpuscular HGB 24.3 pg (26.0-34.0); Mean Corpuscular HGB Conc 32.3 g/dL (31.5-36.5); Mean Corpuscular Volume 75 fL (80-100); Platelet Count 270 K/mm3 (150-400); RDW Coefficient Variation 17.9 % (11.7-14.2); White Blood Cell Count 13.98 K/mm3 (4.00-11.30)
[2022-04-12 04:40] LABS: Albumin, Blood 2.4 g/dL (3.4-5.0); Albumin/Globulin Ratio 0.7 (0.8-1.8); Bilirubin, Total 0.8 mg/dL (0.1-1.0); Bun/Creatinine Ratio 15.6 (12.0-20.0); Calcium, Blood 8.3 mg/dL (8.5-10.1); Creatinine, Blood 1.8 mg/dL (0.60-1.20); Globulin, Blood 3.4 g/dL (2.2-4.0); Potassium, Blood 3.6 mmol/L (3.5-5.5); Total Protein, Blood 5.8 g/dL (6.4-8.2)
--- NOTE | 2022-04-12 06:05 | NUR ---
SHIFT SUMMARY: this author assumed pt cares from . No acute events overnight. Patient slept for the majority of the shift. He is afebrile, oriented but somnolent. Will fall asleep mid-conversation, almost mid-sentence. He is concerned about quality of life, asking this RN "will it always be like this?" Author encouraged patient to discuss this with his doctors today. He will need reinforcement and repetition on this education. Author spoke with patient's girlfriend Siri, who requested an update, and she discussed taking notes while here today and writing down information for patient to reference. Patient has been sinus tachy all night, other than briefly falling <100bpm. VSS otherwise. No arrythmias noted this shift. As for breathing pattern, patient briefly will go apneic and then breathe hard to "catch up." He is c/o feeling dyspneic with even minimal exertion. R radial site WDL; arm board removed. No BMs overnight, frequent use of urinal. Author will report off to day shift nurse and continue cares until then.
[2022-04-12 10:07] LABS: Stool Occult Blood Guaiac 1 Pos (Neg)
--- NOTE | 2022-04-12 17:10 | NUR ---
SHIFT SUMMARY NO ACUTE CHANGES THIS SHIFT. PT HAS SLEPT MOST OF THIS SHIFT. PT AWAKENS EASILY TO VERBAL STIMULI. WHEN AWAKE PT ANSWERS QUESTIONS APPROPRIATELY. PT HAS DENIED PAIN OR DISCOMFORT THIS SHIFT. PT APPEARS TO HAVE SEVERE DYSPNEA WITH MINIMAL EXERTION. VITAL SIGNS REMAIN STABLE. CENTRAL LINE TO RIJ REMAINS C/D/I, SALINE LOCKED. PT USES URINAL TO VOID INDEPENDENTLY. PT WITH FAMILY IN AND OUT TO SEE PT THROUGHOUT THE SHIFT. RIGHT RADIAL ACCESS SITE REMAINS C/D/I. WILL CONTINUE TO MONITOR AND REPORT OFF TO ONCOMING RN.
--- NOTE | 2022-04-12 19:31 | NUR ---
THIS AUTHOR ASSUMED CARE AT 1845. AUTHOR SPOKE WITH PATIENT'S SON, KIERSTEN, WHO LIVES IN [place]. SON REQUESTING UPDATES, SAYS HASN'T BEEN ABLE TO SPEAK WITH HIS DAD REALLY SINCE HE'S BEEN HOSPITALIZED. AUTHOR ADVISED PATIENT IS USUALLY MORE ENERGETIC AND AWAKE IN THE MORNING, AND ENCOURAGED SON TO TRY CALLING IN DURING THE DAY FOR AN UPDATE FROM THE PHYSICIANS. AUTHOR THEN WENT INTO PATIENT ROOM AND HAD PATIENT GIVE HIS SON A CALL. SON KIERSTEN CAN BE REACHED AT [phone]\ PATIENT IS AWAKE, ORIENTED, REPORTS FEELING BETTER TODAY. VSS.
[2022-04-13 03:38] LABS: Hematocrit 30.8 % (37.0-53.0); Hemoglobin 10.1 g/dL (13.5-17.5); Mean Corpuscular HGB 24.5 pg (26.0-34.0); Mean Corpuscular HGB Conc 32.8 g/dL (31.5-36.5); Mean Corpuscular Volume 75 fL (80-100); Platelet Count 262 K/mm3 (150-400); RDW Coefficient Variation 17.9 % (11.7-14.2); RDW Standard Deviation 48.5 fL (35.1-46.3); Red Blood Cell Count 4.12 M/mm3 (4.30-5.90); White Blood Cell Count 15.67 K/mm3 (4.00-11.30)
[2022-04-13 03:57] LABS: Albumin, Blood 2.4 g/dL (3.4-5.0); Albumin/Globulin Ratio 0.7 (0.8-1.8); Bilirubin, Total 0.7 mg/dL (0.1-1.0); Bun/Creatinine Ratio 16.4 (12.0-20.0); Calcium, Blood 8.1 mg/dL (8.5-10.1); Creatinine, Blood 1.83 mg/dL (0.60-1.20); Globulin, Blood 3.5 g/dL (2.2-4.0); Potassium, Blood 3.4 mmol/L (3.5-5.5); Total Protein, Blood 5.9 g/dL (6.4-8.2)
--- NOTE | 2022-04-13 05:04 | NUR ---
PT REPORTS PERSISTENT NAUSEA S/P ZOFRAN; EMAR CONSULTED, ATIVAN ORDERED FOR NAUSEA, SO MEDICATION GIVEN. AUTHOR COUNSELED PT HE MAY FEEL SLEEPY FOR SEVERAL HOURS. SPO2 MONITORING ON, PT ON TELEMETRY.
--- NOTE | 2022-04-13 06:25 | NUR ---
SHIFT SUMMARY: please see interval notes from this author. GENERAL: patient had a good night, seems generally more able to stay awake and has more energy. Walked from bed to toilet, then to chair, back to bed. Dyspneic, but did well. He believes he's going to be here a couple more days and then d/c with Life Vest. Patient is occasionally somnolent and will fall asleep with phone, cup, etc. still in hand. Reports feeling much better yesterday. He had some persistent nausea this morning and received Zofran, then Ativan (as ordered for nausea). Denies CP/vision changes/diaphoresis/other cardiac sx. Wakes easily. Since then he has been sleeping comfortably. HR has been 90s-110s overnight; currently in mid-90s. BPs soft, especially on L arm. Switched over to R and has been WDL. LS clear, still tachypneic. R IJ removed per pt request; c/o discomfort. Site looks WDL, 4x4 with tegaderm applied.
--- NOTE | 2022-04-13 07:25 | NUR ---
Assumed care. Report received from nightshift RN. Pt sleeping in bed att. VS stable, no acute needs noted. Continue to monitor.
--- NOTE | 2022-04-13 13:51 | NUR ---
Pt resting in bed with his eyes closed. Pt appears comfortable with no S/S of distress. Pt's sister Ryann at bedside. Listened Ryann reports Pt is "aditya homeless". She reports Pt will stay with her some of the time and stay with his girlfriend some of the time. She reports Pt has 2 daughters and a son. One daughter lives local and the other children live out of state. Gentle discussion regarding planing for the future including the potential need for caregiver support. Gentle education on disease process including trajectory and the importance of planning as disease takes its coarse. Offered therapeutic listening and answered questions. Ended visit to allow sister to visit. Pt would occasionaly wake then quickly closes his eyes stating be tired. Palliative Care will remain available
--- NOTE | 2022-04-13 18:30 | NUR ---
Shift summary. Pt rested in bed most of the day, up to chair for several hours in the morning. No acute changes this shift. Pt ambulating better this shift, able to stand and use walker without assistance. [employer] rep contacted for update on lifevest, he plans on contacting shoe caser tomorrow for [facility]. Rep stated that shoe caser needed to obtain a purchase order from [place] prior to patient receiving vest. Number on chart for rep. See assessment and notes for further details. Will report off to oncoming RN.
--- NOTE | 2022-04-13 19:23 | NUR ---
ASSUMED CARE OF PT AT 1900 PT SITTING UP IN BED USING CELL PHONE. A/O X4. NO VISITORS IN THE ROOM AT THIS TIME. SPO2 98% ON RA. URINAL AT BEDSIDE. BED IN LOW POSITION. CALL LIGHT WITHIN REACH. SEE FULL ASSESSMENT FOR FUTHER INFORMATION.
--- NOTE | 2022-04-13 19:30 | NUR ---
PT SPOUSE IN ROOM [id number]. SPOUSE FILLED OUT FOOD TRAY ORDER AND STATED THAT HE PROBABLY WONT EAT IT. REQUEST FOR SUPPLEMENTS INSTEAD. SPOUSE ASSURED THAT REPORT GIVEN BY DAY NURSE STATED THAT GLUCERNA HAS BEEN GIVEN WITH MEALS. WILL ALSO RELAY TO ONCOMING SHIFT IN THE AM.
--- NOTE | 2022-04-14 03:20 | NUR ---
SHIFT REPORT GIVEN TO PCU NURSE FOR TRANSFER TO PCU 14. PT A/O X4. BP AND HR STABLE. NO CHANGES FROM SHIFT ASSESSMENT AT BEGINNING OF SHIFT. CALLED SPOUSE AND LEFT MESSAGE TO CALL FOR UPDATE.
[2022-04-14 03:55] LABS: Hematocrit 31.5 % (37.0-53.0); Hemoglobin 10.2 g/dL (13.5-17.5); Mean Corpuscular HGB 24.2 pg (26.0-34.0); Mean Corpuscular HGB Conc 32.4 g/dL (31.5-36.5); Mean Corpuscular Volume 75 fL (80-100); Mean Platelet Volume 10.1 fL (9.1-12.4); Platelet Count 257 K/mm3 (150-400); RDW Coefficient Variation 17.8 % (11.7-14.2); RDW Standard Deviation 47.8 fL (35.1-46.3); Red Blood Cell Count 4.21 M/mm3 (4.30-5.90); White Blood Cell Count 13.42 K/mm3 (4.00-11.30)
--- NOTE | 2022-04-14 04:23 | NUR ---
CARE ASSUMPTION/SHIFT SUMMARY: PT TRANSFERRED FROM ICU 13 TO PCU 14 AT 0345. PT ABLE TO AMBULATE VIA STAND BY ASSIST TO BED. ALERT AND ORIENTED X4, ABLE TO FOLLOW COMMANDS AND MAKE NEEDS KNWON. PEERLA. STRENGTH EQUAL BILATERALLY. BP STABLE. HR ST 100'S. PULSES STRONG AND EQUAL THROUGHOUT. +3 EDEMA IN BLE, REDNESS NOTED, WARM TO TOUCH. AFEBRILE. SATURATIONS >99% ON ROOM AIR. RESPIRATIONS EVEN AND UNLABORED, LUNG SOUNDS CLEAR THROUGHOUT. PT WAITING FOR LIFEVEST PRIOR TO DISCHARGE. BED IN LOW, ALARM ON, CALL LIGHT IN REACH. WILL REPORT TO ONCOMING RN.
[2022-04-14 04:31] LABS: Albumin, Blood 2.3 g/dL (3.4-5.0); Albumin/Globulin Ratio 0.7 (0.8-1.8); Bilirubin, Total 0.7 mg/dL (0.1-1.0); Bun/Creatinine Ratio 18.9 (12.0-20.0); Creatinine, Blood 1.96 mg/dL (0.60-1.20); Globulin, Blood 3.5 g/dL (2.2-4.0); Potassium, Blood 3.6 mmol/L (3.5-5.5); Total Protein, Blood 5.8 g/dL (6.4-8.2)
--- NOTE | 2022-04-14 10:03 | NUR ---
PT PLEASANT COOP A/O X3, SOME DROWSY. DENIES C/PN AT THIS TIME. PL[facility], THEN HOME. H/R REG, NO MURMUR NOTED. PER TEHE NSR AT 92 WITH PVC'S. LUNGS CLEAR, RESP EASY UNLABORED. ON R.A. BT X4 LASST BM 2 DAYS PER PT. STATES NOT EATING MUCH, SO IS EXPECTED. VOIDS URINAL AND SBA TO BATHROOM. RT WRIST SITE. CDI NO NEW BLEEDING NOTED. BED IN LOW POSITIOIN, CALL LITE IN REACH, CALLS APPROP
--- NOTE | 2022-04-14 10:30 | NUR ---
TELE CALLED, STATES WAS NSR THIS AM. MOVED TO [facility] AT 1000 FOR ABOUT 20 MIN. NOW RETURNED TO NSR. NNOTIFIED DR ACOSTA. NO NEW ORDERS.
--- NOTE | 2022-04-14 16:29 | NUR ---
SHIFT SUMMARY THIS NURSE ASSUMED CARE OF PT APPROX. 1500. PT IS ALERT AND ORIENTED X 4 AND IS ABLE TO MAKE HIS NEEDS KNOWN. HIS WAS AT BEDSIDE. VSS, HE IS ON RA AND HAS DENIED FEELINGS OF CHEST PAIN/PRESSURE. HE IS ACHS BLOOD GLUCOSE CHECKS PER EMAR ORDERS. HE HAS VOIDED USING BEDSIDE URINAL SINCE THIS NURSE ASSUMED CARE. HE HAS A RIGHT RADIAL ANGIO SITE THAT IS COVERED W/ TRANSPARENT DRESSING, NO APPARENT BLEEDING NOTED. THIS NURSE AND CORNELL RN ASSESSED SITE TOGETHER AND PER CORNELL RN REPORT, SITE HAS REMAINED UNCHANGED FROM PREVIOUS ASSESSMENT. HE IS IN SINUS RYTHM PER TELE REPORT BUT HAD A FUN OF AFLUTTER THIS AM, CORNELL RN REPORTED THAT IS AWARE. R WRIST IV IS SALINE LOCKED. PT NOW APPEARS TO BE SLEEPING COMFORTABLY, WILL CONTINUE TO MONITOR UNTIL REPORT GIVEN. CALL LIGHT IS IN REACH.
--- NOTE | 2022-04-15 01:59 | NUR ---
PT UPDATE PT HEARD MOANING FROM ROOM, THIS RN TO BEDSIDE, PT APPEARS GRIMACING, STATES CONTINUED DISCOMFORT IN NECK. THIS RN ASKS IF I MAY BRING HIM SOMETHING MORE FOR PAIN SUCH TYLENOL, LIDOCAINE PATCH, TYLENOL #3 ( PT NORMALLY TAKES AT HOME), HEAT PACK, ICE. PT REFUSES. THIS RN ENCOURAGES PT TO ASK FOR SOMETHING MORE FOR PAIN D/T VISIBLE DISCOMFORT, OFFER TO HELP REPOSITION PT. PT REFUSES.
[2022-04-15 04:05] LABS: Hematocrit 32.6 % (37.0-53.0); Hemoglobin 10.5 g/dL (13.5-17.5); Mean Corpuscular HGB Conc 32.2 g/dL (31.5-36.5); Mean Corpuscular Volume 75 fL (80-100); Mean Platelet Volume 10.1 fL (9.1-12.4); Platelet Count 264 K/mm3 (150-400); RDW Coefficient Variation 17.7 % (11.7-14.2); RDW Standard Deviation 47.7 fL (35.1-46.3); Red Blood Cell Count 4.37 M/mm3 (4.30-5.90); White Blood Cell Count 12.64 K/mm3 (4.00-11.30)
[2022-04-15 04:26] LABS: Albumin, Blood 2.2 g/dL (3.4-5.0); Albumin/Globulin Ratio 0.6 (0.8-1.8); Bilirubin, Total 0.5 mg/dL (0.1-1.0); Bun/Creatinine Ratio 21.5 (12.0-20.0); Calcium, Blood 8.2 mg/dL (8.5-10.1); Creatinine, Blood 1.86 mg/dL (0.60-1.20); Globulin, Blood 3.6 g/dL (2.2-4.0); Potassium, Blood 3.8 mmol/L (3.5-5.5); Total Protein, Blood 5.8 g/dL (6.4-8.2)
--- NOTE | 2022-04-15 07:36 | NUR ---
SHIFT SUMMARY PT AOX4, BREATHING APPEARS TACHYPNEIC AT REST, OCCASIONAL PERIODS OF BREATH HOLDING POSSIBLY R/T EPISODES OF CHRONIC NECK PAIN. PT DENIED CP T/O NIGHT. SR-ST BBB, 90'S-100'S. BREATH SOUNDS CLEAR. PT DOSED PER EMAR FOR SEVERE NECK PAIN. REFUSED FURTHER MEDS FOR PAIN/OFFERS FOR ICE/HEAT. CONCERN FOR SKIN BREAKDOWN TO COCCYX. MEPILEX IN PLACE. PT WEAK THIS AM WHEN UP FROM CHAIR AND C/O DIZZINESS WHEN UP. CONCERN FOR DC HOME D/T PT STATES HE DOES NOT HAVE TOOLS HE NEEDS SUCH WALKER, BATH CHAIR, ANY AIDS.
--- NOTE | 2022-04-15 17:10 | NUR ---
SHIFT SUMMARY PT IS ALERT AND ORIENTED X 4 BUT HAS BEEN SOMNOLENT DURING SHIFT. HE REPORTED THAT THE LONGER HE IS AT THE HOSPITAL, THE MORE TIRED AND WEAK HE FEELS. SPO2 MAINTAINED >95% VIA RA, HR IS 90-107 PER TELE REPORT. THIS AM, NOC RN LJ LET THIS NURSE KNOW THAT PT FELT DIZZY UPON AMBULATION FROM BED TO CHAIR. THIS NURSE ATTEMPTED TO DO ORTHOSTATIC BP BUT AFTER THE SECOND BP READING WHERE PT IS REQUIRED TO SIT, BP WENT FROM 110/57 TO 87/54. DR. HILLMAN MADE AWARE AND STANDING BP WAS NOT PERFORMED. BP HAS SINCE BEEN STABLE. PT HAS BEEN IN RECLINER CHAIR ALL DAY. HE REPORTED NAUSEA THIS AM THAT HAS SINCE RESOLVED. THIS NURSE HAS BEEN GIVING PT GLUCERNA PROTEIN DRINKS DUE TO ELEVATED BLOOD SUGAR. PT HAS HAD VERY LITTLE PO INTAKE BUT REPORTS IT IS DUE TO HIS DISLIKE OF HOSPITAL FOOD RATHER THAN LACK OF APPETITE. THIS AM PT FAVORED ENSURE DRINKS WHICH MAY HAVE CONTRIBUTED TO ELEVATED BLOOD SUGARS DESPOITE POOR PO INTAKE. PHYSICAL THERAPY NOTIFIED OF CONSULT ORDER BY THIS RN. THIS NURSE PROVIDED UPDATE TO PT DAUGHTER JC WELL HIS SISTER DURING SHIFT. PLAN FOR [facility]OLL LIFE VEST REP TO FIT PT TONIGHT AT 0000. WILL PASS ON TO ONCOMING RN. PT IS IN RECLINER CHAIR, CALL LIGHT IS IN REACH. WILL CONTINUE TO MONITOR UNITL REPORT GIVEN.
--- NOTE | 2022-04-16 00:49 | NUR ---
UPDATE: LIFE VEST TECH AT BEDSIDE @0051. FITTING PT WITH VEST.
--- NOTE | 2022-04-16 04:36 | NUR ---
SHIFT SUMMARY: PT IS ALERT AND ORIENTED X4, ABLE TO FOLLOW COMMANDS AND MAKE NEEDS KNOWN. COOPERATIVE WITH CARE. BP STABLE, HR SR-ST, NO COMPLAINTS OF CP/PRESSURE THROUGHOUT THE NIGHT. R, RADIAL SITE WNL W/ TEGADERM IN PLACE. AFEBRILE, SATURATIONS >92% ON ROOM AIR. RESPIRATIONS EVEN AND UNLABORED. ZOLL REP AT BEDSIDE THIS EVENING AND FITTED PT FOR LIFE VEST, CURRENTLY ON. PT VERBALIZED UNDERSTANDING ON EDUCATION PROVIDED. PT COMPLAINING OF COCCYX PAIN, MEPILEX IN PLACE. REPOSITIONED Q2 TO MAINTAIN SKIN INTEGRITY. ABLE TO USE URINAL IND AT BEDSIDE. SISTER AT BEDSIDE BEGINNING OF SHIFT AND UPDATED ON CARE WITH PT PERMISSION. ORDERS PLACED FOR PT TO WORK WITH PHYSICAL THERAPY PRIOR TO DISCHARGE. PT ANXIOUS TO GO HOME. BED IN LOW, CALL LIGHT IN REACH, WILL REPORT TO ONCOMING RN.
[2022-04-16 04:40] LABS: Bun/Creatinine Ratio 21.7 (12.0-20.0); Calcium, Blood 8.1 mg/dL (8.5-10.1); Creatinine, Blood 1.98 mg/dL (0.60-1.20); Potassium, Blood 3.8 mmol/L (3.5-5.5)
--- NOTE | 2022-04-16 12:10 | NUR ---
1210 - Notified Dr. Cardona of pt BPs with soft MAPS 60-65 and discharge plan in place. Per MD tello to D/C, BP within pts new normal. Pt asymptomatic and educated on blood pressure and heart failure medications. Also notified of need for DME order.
[2022-04-16] MEDS ORDERED: MIRT30 PO (13:04)
[2022-04-16] MEDS ORDERED: DIGOX250 MCG PO (13:04)
[2022-04-16] MEDS ORDERED: TICA90TA PO (13:05)
--- NOTE | 2022-04-16 18:09 | NUR ---
DISCHARGE @ 1600 PT DISCHARGED VIA PRIVATE VEHICLE TO HOME. DISCHARGE INSTRUCTIONS WENT OVER WITH PATIENT AND FAMILY. PT OPTING FOR [employer] FOR HOME HEALTH. PT TO PICKUP HOME HEALTH DEVICES @ [employer] AND HAS PHYSICAL PRESCRIPTION. LIFE VEST ON AND PT VERBALIZES LIFE VEST REP COMPLETED EDUCATION LAST NIGHT. REMOVED IV. LEFT WITH ALL BELONGINGS.
== END 2022-04-16 16:58 | disposition home health service (06) | DRG 246 ==
LOC: ER 19:53 → PCU 20:19 → ICUW 20:19 → PCU 04-14 03:24
PROVIDERS: Internal Medicine; Internal Medicine Interventional Cardiology; Student in an Organized Health Care Education/Training Program; ADMIT Internal Medicine
PROC: 027034Z Dilation of Coronary Artery, One Artery with Drug-eluting Intraluminal Device, Percutaneous Approach (ICD-10-PCS; principal; 2022-04-09)
PROC: 4A023N7 Measurement of Cardiac Sampling and Pressure, Left Heart, Percutaneous Approach (ICD-10-PCS; 2022-04-09)
PROC: B2111ZZ Fluoroscopy of Multiple Coronary Arteries using Low Osmolar Contrast (ICD-10-PCS; 2022-04-09)
PROC: B241ZZ3 Ultrasonography of Multiple Coronary Arteries, Intravascular (ICD-10-PCS; 2022-04-09)
DX: T82.855A Stenosis of coronary artery stent, initial encounter (principal); I21.09 ST elevation (STEMI) myocardial infarction involving other coronary artery of anterior wall; R57.0 Cardiogenic shock; I13.0 Hypertensive heart and chronic kidney disease with heart failure and stage 1 through stage 4 chronic kidney disease, or unspecified chronic kidney disease; I47.1 Supraventricular tachycardia; I50.42 Chronic combined systolic (congestive) and diastolic (congestive) heart failure; Z95.1 Presence of aortocoronary bypass graft; Z95.5 Presence of coronary angioplasty implant and graft; F17.210 Nicotine dependence, cigarettes, uncomplicated; I25.10 Atherosclerotic heart disease of native coronary artery without angina pectoris; I34.0 Nonrheumatic mitral (valve) insufficiency; E11.65 Type 2 diabetes mellitus with hyperglycemia; I25.2 Old myocardial infarction; D64.9 Anemia, unspecified; E11.22 Type 2 diabetes mellitus with diabetic chronic kidney disease; N18.30 Chronic kidney disease, stage 3 unspecified; J44.9 Chronic obstructive pulmonary disease, unspecified; F41.9 Anxiety disorder, unspecified; E78.5 Hyperlipidemia, unspecified; I48.91 Unspecified atrial fibrillation; D63.1 Anemia in chronic kidney disease
CPT/HCPCS: 0241U; 36415; 71045; 76937; 80048; 80053; 80061; 82272; 82728; 82947; 83540; 83550; 83605; 83690; 83735; 83880; 84484; 85025; 85027; 85347; 85379; 85610; 85730; 92941; 92978; 93005; 93010; 93308; 93454; 96361; 96374; 96375; 97161; 99291-25; A9270; C1725; C1751; C1753; C1769; C1874; C1887; C1894; C9113; C9606; J1644; J1650; J1815; J1940; J2060; J2405; J3010; J3246; J7030; J7040; J7050; J7060; Q9967

== ENCOUNTER 2022-05-06 08:53 | Emergency (ER) | payer OTHER ==
[~2022-05-06] VITALS: Ht 180.3 cm; Wt 77.1 kg
[~2022-05-06 08:53] MED LIST changes: +ATOR80 PO; +CODACE30 PO; +DIGOX250 MCG PO; +EUTHYROX50 MCG PO; +HYDR10 PO; +MIRT30 PO; +NITR.4SL SL; +TICA90TA PO
[2022-05-06 09:54] LABS: BASOPHILS ABSOLUTE AUTO 0.05 K/mm3 (0.00-0.23); BASOPHILS PERCENT AUTO 0 % (0-2); EOSINOPHILS ABSOLUTE AUTO 0.38 K/mm3 (0.00-0.68); EOSINOPHILS PERCENT AUTO 3 % (0-6); Hematocrit 31.4 % (37.0-53.0); Hemoglobin 9.6 g/dL (13.5-17.5); IMMATURE GRAN ABSOLUTE AUTO 0.03 K/mm3 (0.00-0.10); IMMATURE GRAN PERCENT AUTO 0 % (0-1); LYMPHOCYTES ABSOLUTE AUTO 2.04 K/mm3 (0.84-5.20); LYMPHOCYTES PERCENT AUTO 18 % (21-46); MONOCYTES ABSOLUTE AUTO 1.03 K/mm3 (0.16-1.47); MONOCYTES PERCENT AUTO 9 % (4-13); Mean Corpuscular HGB Conc 30.6 g/dL (31.5-36.5); Mean Corpuscular Volume 79 fL (80-100); Mean Platelet Volume 10.5 fL (9.1-12.4); NEUTROPHILS ABSOLUTE AUTO 8.03 K/mm3 (1.96-9.15); NEUTROPHILS PERCENT AUTO 70 % (41-73); Platelet Count 205 K/mm3 (150-400); RDW Coefficient Variation 18.3 % (11.7-14.2); White Blood Cell Count 11.56 K/mm3 (4.00-11.30)
[2022-05-06 10:27] LABS: Albumin, Blood 2.4 g/dL (3.4-5.0); Albumin/Globulin Ratio 0.7 (0.8-1.8); Bilirubin, Total 0.4 mg/dL (0.1-1.0); Bun/Creatinine Ratio 15.3 (12.0-20.0); Calcium, Blood 8.1 mg/dL (8.5-10.1); Creatinine, Blood 1.9 mg/dL (0.60-1.20); Globulin, Blood 3.5 g/dL (2.2-4.0); Potassium, Blood 4.6 mmol/L (3.5-5.5); Total Protein, Blood 5.9 g/dL (6.4-8.2)
[2022-05-06 10:57] LABS: Influenza A, PCR NEGATIVE (NEGATIVE); Influenza B, PCR NEGATIVE (NEGATIVE); Resp Syncytial Virus, PCR NEGATIVE (NEGATIVE); SARS-Cov-2 (COVID-19) PCR, MMC NEGATIVE (NEGATIVE)
[2022-05-06] MEDS ORDERED: Lasix20 MG PO (12:26)
== END 2022-05-06 12:50 | disposition home or self-care (01) ==
LOC: ER 08:53
PROVIDERS: Emergency Medicine
DX: I13.0 Hypertensive heart and chronic kidney disease with heart failure and stage 1 through stage 4 chronic kidney disease, or unspecified chronic kidney disease (principal); I50.22 Chronic systolic (congestive) heart failure; E11.22 Type 2 diabetes mellitus with diabetic chronic kidney disease; N18.30 Chronic kidney disease, stage 3 unspecified; J44.9 Chronic obstructive pulmonary disease, unspecified; I25.10 Atherosclerotic heart disease of native coronary artery without angina pectoris; Z88.8 Allergy status to other drugs, medicaments and biological substances; Z79.82 Long term (current) use of aspirin; Z79.890 Hormone replacement therapy; Z79.899 Other long term (current) drug therapy; Z95.1 Presence of aortocoronary bypass graft; Z87.891 Personal history of nicotine dependence; Z20.822 Contact with and (suspected) exposure to COVID-19
CPT/HCPCS: 0241U; 36415; 71046; 80053; 83880; 84484; 85025